=== PATIENT | male | born 1960 | race Caucasian/White ===

== ENCOUNTER 2025-02-07 14:05 | Emergency (ER) | payer MEDICARE, SELFPAY ==
[2025-02-07 14:06] VITALS: BMI 25.8
--- NOTE | 2025-02-07 14:47 | PC.NURSE ---
PATIENT WALK OUT OF ED LOBBY AT THIS TIME AND SECURITY STAFF REPORTED THAT PATIENT LEFT WALKING DOWN THE STREET.
--- NOTE | 2025-02-07 14:52 | PC.NURSE ---
PT CALLED FOR RME. NO RESPONSE X1 @1450.
== END 2025-02-07 15:00 | disposition left against medical advice (07) ==
LOC: SERX 15:46
PROVIDERS: Emergency Provider Emergency Medicine
DX: Z53.21 Procedure and treatment not carried out due to patient leaving prior to being seen by health care provider (principal)
CPT/HCPCS: 99283

== ENCOUNTER 2025-03-18 12:59 | Emergency (ER) | payer MEDICARE, SELFPAY ==
[2025-03-18 13:01] VITALS: BMI 25.0
--- NOTE | 2025-03-18 13:05 | EKG_ITS ---
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: : 1960 Requested By: ED Temporary Provider Order Number: [id number] Reading MD: ED Temporary Provider Measurements Intervals [place] Rate: 71 P: 49 MN: 128 QRS: 59 QRSD: 110 T: 60 QT: 431 QTc: 469 Interpretive Statements SINUS RHYTHM WITH OCCASIONAL VENTRICULAR PREMATURE COMPLEXES POSSIBLE LEFT ATRIAL ENLARGEMENT [-0.1mV P-WAVE IN V1/V2] INFERIOR MYOCARDIAL INFARCTION , PROBABLY OLD [40+ ms Q WAVE AND/OR ST/T ABNORMALITY IN II/aVF] Compared to ECG 09/30/2022 02:28:00 Ventricular premature complex(es) now present Myocardial infarct finding now present /store/S0/[id number]/ecg/[id number].pdf
[2025-03-18 13:14] VITALS: BP 127/66; PULSE 65; RESP 20; TEMP 37; O2SAT 98
--- NOTE | 2025-03-18 13:22 | XR_ITS ---
Examination: CT brain head without contrast. 2-D sagittal coronal reconstructions Date and time of exam:March 18, 2025, 1642 hours INDICATIONS: Syncopal episode, patient fell today with injury to the head, head pain CTDI: vol (mGy):51.4. DLP: (mGycm):1067. Technique: Multiple CT axial sections of the brain have been obtained, 5 mm slice thickness. Contrast has not been administered. 2-D sagittal, coronal reconstructions have been obtained Low dose protocols were performed. One or more of the following dose reduction techniques were used; automated exposure control, adjustment of the mA and/or KV according to patient size, use of iterative reconstruction technique. Findings: No significant ventricular enlargement. Intra-axial or extra-axial hemorrhage density is not seen. No mass effect or midline shift Basal cisterns are not remarkable. Fourth ventricle is midline. Cranial vault intact. Impression: Negative for acute hemorrhage, mass effect or midline shift
--- NOTE | 2025-03-18 13:22 | XR_ITS ---
Examination: PA lateral chest 2 views TECHNIQUE: Upright PA lateral chest 2 views Date and time: March 18, 2025 1333 hours Comparison September 30, 2022 INDICATIONS: Chest pain beginning today. Lines: Stable blunting left lateral costophrenic angle Surgical clips overlying the left anterior chest No pneumonia or pulmonary edema Median sternotomy wires IMPRESSION: No interval pneumonia or pulmonary edema
--- NOTE | 2025-03-18 13:22 | XR_ITS ---
Examination: CT cervical spine without contrast 2-D sagittal reconstructions 2-D coronal reconstructions 3-D reconstructions. Exam date and time:March 18, 2025, 1642 hours INDICATIONS: Patient fell today with injury to the neck, neck pain CTDI:vol (mGy) 14.9 DLP: (mGycm) 353 Technique: Multiple 2 mm axial sections of the cervical spine have been obtained. The coronal and sagittal reconstructions have been obtained. 3-D reconstructions have been obtained. Low dose protocols were performed. One or more of the following dose reduction techniques were used; automated exposure control, adjustment of the mA and/or KV according to patient size, use of iterative reconstruction technique. Findings: Axial sections demonstrate intact base of the skull. C1 exhibit satisfactory relationship to the odontoid. No acute cervical vertebral body fracture seen. Alignment posterior spinous processes satisfactory. Significant disc narrowing C5-C6, anterolisthesis C6 on C5 3 mm Impression: No acute cervical fracture.
--- NOTE | 2025-03-18 13:23 | PD.EDRME ---
Rapid Medical Screening Exam RME Arrival date/time: 03/18/25 12:59 62-year-old male presents to the emergency department today for complaints of syncopal episode today Chief Complaint: Syncope / Near Syncope Vital signs: Vital Signs Temperature 98.6 F 03/18/25 13:14 Pulse Rate 65 03/18/25 13:14 Respiratory Rate 20 03/18/25 13:14 Blood Pressure 127/66 03/18/25 13:14 Pulse Oximetry (%) 98 03/18/25 13:14 Oxygen Delivery Method Room Air 03/18/25 13:14
[2025-03-18 14:12] LABS: Basophils # (Auto) 0.0 Thou/mm3 (0.0-0.2); Basophils % (Auto) 1 % (0-2.5); Eosinophils # (Auto) 0.0 Thou/mm3 (0.0-0.5); Eosinophils % (Auto) 0 % (0-10); Hematocrit 41.6 % (41.0-53.0); Hemoglobin 14.9 g/dL (13.5-16.0); Immature Granulocytes Auto 0.01 Thou/mm3 (0.00-0.00); Lymphocytes # (Auto) 0.6 Thou/mm3 (1.0-4.8); Lymphocytes % (Auto) 22 % (10-50); Mean Corpuscular HGB Conc 35.8 g/dl (31.0-37.0); Mean Corpuscular Hemoglobin 32.3 pg (25.0-35.0); Mean Corpuscular Volume 90 fL (80-100); Monocytes # (Auto) 0.4 Thou/mm3 (0.0-0.8); Monocytes % (Auto) 17 % (0-12); Neutrophils # (Auto) 1.5 Thou/mm3 (1.8-7.7); Neutrophils % (Auto) 59 % (37-80); Nucleated Red Blood Cell # 0.00 Thou/mm3 (0.00-0.00); Nucleated Red Blood Cell % 0 /100 WBC (0); Platelet Count 105 Thou/mm3 (140-440); RDW Standard Deviation 43.8 fL (35.1-43.9); Red Blood Count 4.61 Miln/mm3 (4.50-5.90); White Blood Count 2.5 Thou/mm3 (3.8-10.6)
[2025-03-18 14:22] LABS: INR 1.1 (0.9-1.3); Partial Thromboplastin Time 32.0 Seconds (22.0-36.0); Prothrombin Time 11.8 Seconds (9.0-12.2)
[2025-03-18 14:27] LABS: B-Type Natriuretic Peptide 329 pg/mL (0-100)
[2025-03-18 14:29] LABS: Alanine Aminotransferase 20 U/L (10-49); Albumin, Serum 4.3 gm/dL (3.4-4.8); Albumin/Globulin Ratio 1.7 (1.2-2.2); Alkaline Phosphatase 68 U/L (46-116); Anion Gap 13 (7-16); Aspartate Amino Transferase 35 U/L (0-34); BUN/Creatinine Ratio 12 Ratio (12-20); Bilirubin,Total 0.5 mg/dL (0.3-1.2); Blood Urea Nitrogen 14 mg/dL (9-23); Calcium 9.6 mg/dL (8.3-10.6); Calcium (Corrected) 9.6 mg/dL (8.5-10.1); Carbon Dioxide 23.4 mMol/L (20.0-31.0); Chloride 101 mMol/L (98-107); Creatinine (Component) 1.2 mg/dL (0.6-1.3); Estimated Creatinine Clearance 59.7 mL/min (>60); Globulin 2.5 gm/dL (2.3-3.5); Glucose 106 mg/dL (74-106); Magnesium 1.6 mg/dL (1.6-2.6); Osmolality,Calculated 274 (275-295); Potassium 2.8 mMol/L (3.4-5.1); Sodium 137 mMol/L (136-145); Total Protein 6.8 gm/dL (5.7-8.2); Troponin I 0.026 ng/mL (0.0-0.045); eGFR > 60 See Note
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
== END 2025-03-18 18:16 | disposition left against medical advice (07) ==
PROVIDERS: Nurse Practitioner Primary Care; Emergency Provider Emergency Medicine; PCP Family Medicine
DX: I49.9 Cardiac arrhythmia, unspecified (principal); E87.6 Hypokalemia; D72.819 Decreased white blood cell count, unspecified; F31.9 Bipolar disorder, unspecified; E03.9 Hypothyroidism, unspecified; I10 Essential (primary) hypertension; Z53.29 Procedure and treatment not carried out because of patient's decision for other reasons; Z87.891 Personal history of nicotine dependence; Z95.1 Presence of aortocoronary bypass graft; Z79.890 Hormone replacement therapy
CPT/HCPCS: 36415; 70450; 71046; 72125; 80053; 80307; 81001; 83735; 83880; 84484; 85025; 85610; 85730; 93005; 99283; A9270

== ENCOUNTER 2025-03-23 20:52 | Emergency (ER) | payer MEDICARE, SELFPAY ==
--- NOTE | 2025-03-23 21:03 | PD.EDDIZZY ---
ED Dizzyness RME/HPI General Chief Complaint: General Adult/Misc Complain Stated Complaint: LIGHT HEADED Time Seen by Provider: 03/23/25 21:08 Arrival date/time: 03/23/25 20:52 RME / HPI RME / HPI Narrative: Dr. Vergara?s Main ED Evaluation: 64yo male brought in by EMS after acknowledging smoking medical marijuana and subsequently became diaphoretic and had a near syncopal episode, causing him to assume a seated position and call EMS. Patient spontaneously improved COMPUTER APPLICATIONS ENGINEER. No vomiting, diarrhea, or any other anteceding illness. PMH includes CAD and bypass surgery. Patient does engage in tobacco use. Denies alcohol use. Related Data Previous Rx's ?Medication ?Instructions ?Recorded furosemide 40 mg tablet (Lasix) 40 mg PO QDAY #10 tabs 09/30/22 potassium chloride 10 mEq 10 meq PO QDAY #10 caps 09/30/22 capsule,extended release Allergies Allergy/AdvReac Type Severity Reaction Status Date / Time No Known Allergies Allergy Verified 03/23/25 21:15 Review of Systems Review of Systems Systems Reviewed: All systems reviewed, normal except as documented Past Medical History Past Medical History CARDIAC: Positive Cardiac Disorders and Hypertension; Negative Congestive Heart Failure RESPIRATORY: Negative Chronic Obstructive Pulmonary Disease (COPD) GENITOURINARY: Negative Renal Disease ENDOCRINE: Positive Hypothyroidism; Negative Diabetes Mellitus Type 1 or Diabetes Mellitus Type 2 PSYCHO/SOCIAL: Positive Depression Surgical History SURGICAL: Positive Cardiac Surgery and Open Heart Surgery Social History SMOKING STATUS: Current some day smoker SUBSTANCE USE: does not use ED Exam Narrative Physical exam: GENERAL APPEARANCE: alert and oriented x 4, well-developed, well-nourished, nontoxix, resting comfortably and appropriately interactive, no acute distress VITALS: All vitals were reviewed and the pulse ox is 97% on room air, which is normal according to my interpretation. HEENT: Normocephalic, atraumatic; pupils equal, round, reactive to light; EOMI; mucous membranes pink, moist; oropharynx clear NECK: Supple LUNGS: CTABL; no wheezes, no rales, no rhonchi HEART: Regular rate, regular rhythm; normal S1, S2; no murmurs ABDOMEN: non distended; normal BS; soft, no tenderness, no guarding, no rebound; no masses, no organomegaly, no hernia BACK: no CVA tenderness EXTREMITIES: atraumatic; no edema NEUROLOGIC: awake; alert and oriented x4; cranial nerves II-XII grossly intact; no focal sensory or motor deficits PSYCHIATRIC: appropriate mood and affect SKIN: warm, dry, normal color; no rashes Course Quality Measures none Vital Signs Vital signs: Vital Signs Temperature 98.3 F 03/23/25 21:30 Pulse Rate 55 L 03/23/25 21:30 Respiratory Rate 15 03/23/25 21:30 Blood Pressure 110/77 03/23/25 21:30 Pulse Oximetry (%) 97 03/23/25 21:30 Oxygen Delivery Method Room Air 03/23/25 21:30 Dizziness MDM Narrative MDM Narrative:: Scribe Attestation: 03/23/25 - Shirlene Sandoval am scribing for and in the presence of Dr. Vergara. 64yo male brought in by EMS after acknowledging smoking medical marijuana and subsequently became diaphoretic and had a near syncopal episode, causing him to assume a seated position and call EMS. Patient spontaneously improved COMPUTER APPLICATIONS ENGINEER. Please see PE findings. Shortly after arrival and after initial medical screening exam, patient abruptly eloped. Patient was hemodynamically stable, neurologically intact, and of sound mind. Dx: near syncope, substance abuse Patient data External records reviewed:: [facility] previous records (Per chart review, patient was seen here on 03/18/25 for acute hypokalemia.) and EMS form Clinical information provided by:: patient Social determinants that could affect healthcare access:: substance use Patient has the following chronic illnesses:: HTN, hypothyroidism How is presenting disease/condition affected by chronic disease/condition?: uneffected by Evaluation data The following diagnostics were reviewed and interpreted by me:: other (specify) (none) Lab and/or radiology exams considered but not ordered:: none Interpretation Summary: none Medications / Prescriptions Medications or Prescriptions considered but not ordered:: none Medication administrations:: none Consultations Consultation(s) initiated? (list below): No Diagnosis Dizziness Differential Diagnosis: orthostatic hypotension and other (marijuana use, near syncope, dehydration) Most likely diagnosis given after review of the tests above:: Elopement Admission Indicated Admission indicated?: not indicated Admission Request Was there a request for admission?: No Disposition Plan Disposition Plan: other (specify) (Elopement) Discharge Plan Plan Patient Disposition: Elopement Prescriptions/Referrals Prescriptions/Med Rec: No Action furosemide [Lasix] 40 mg tablet 40 mg PO QDAY Qty: 10 0RF potassium chloride 10 mEq capsule, extended release 10 meq PO QDAY Qty: 10 0RF Referrals: No Primary/Family,Physician [Primary Care Provider] - In 1 week Problem List Clinical Impression: Near syncope, Substance abuse Patient/Caregiver Discharge Instructions Print Language: Citizen [place]
[2025-03-23 21:16] VITALS: PULSE 64; RESP 18; O2SAT 96
[2025-03-23 21:30] VITALS: BP 110/77; PULSE 55; RESP 15; TEMP 36.8; O2SAT 97; BMI 25.0
--- NOTE | 2025-03-23 22:17 | PC.NURSE ---
PT ELOPED THE ER PER SECURITY.
== END 2025-03-23 22:17 | disposition left against medical advice (07) ==
PROVIDERS: Emergency Provider Emergency Medicine
DX: R55 Syncope and collapse (principal); F12.10 Cannabis abuse, uncomplicated; I10 Essential (primary) hypertension; E03.9 Hypothyroidism, unspecified; I25.10 Atherosclerotic heart disease of native coronary artery without angina pectoris; Z53.29 Procedure and treatment not carried out because of patient's decision for other reasons; Z95.1 Presence of aortocoronary bypass graft; F17.200 Nicotine dependence, unspecified, uncomplicated
CPT/HCPCS: 99281

== ENCOUNTER 2025-06-03 10:10 | Emergency (ER) | payer MEDICARE, SELFPAY ==
[2025-06-03 10:11] VITALS: BMI 22.8
[2025-06-03 10:38] VITALS: BP 186/90; PULSE 97; RESP 19; TEMP 36.6; O2SAT 100
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
[2025-06-03] MEDS: HYDROcodone/APAP 5/325 TABLET 1 TAB PO (10:53)
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
== END 2025-06-03 15:03 | disposition home or self-care (01) ==
PROVIDERS: Emergency Provider Nurse Practitioner Primary Care; PCP Family Medicine
DX: S00.83XA Contusion of other part of head, initial encounter (principal); Y09 Assault by unspecified means; S00.419A Abrasion of unspecified ear, initial encounter; S00.03XA Contusion of scalp, initial encounter
CPT/HCPCS: 70450; 71250; 72125; 74176; 99282; A9270

== ENCOUNTER → 2025-07-05 | Outpatient (CLI) | payer MEDICARE, SELFPAY ==
[2025-07-05 12:23] LABS: Basophils # (Auto) 0.0 Thou/mm3 (0.0-0.2); Basophils % (Auto) 1 % (0-2.5); Eosinophils # (Auto) 0.1 Thou/mm3 (0.0-0.5); Eosinophils % (Auto) 2 % (0-10); Hematocrit 41.3 % (41.0-53.0); Hemoglobin 14.0 g/dL (13.5-16.0); Immature Granulocytes Auto 0.01 Thou/mm3 (0.00-0.00); Lymphocytes # (Auto) 1.5 Thou/mm3 (1.0-4.8); Lymphocytes % (Auto) 24 % (10-50); Mean Corpuscular HGB Conc 33.9 g/dl (31.0-37.0); Mean Corpuscular Hemoglobin 32.9 pg (25.0-35.0); Mean Corpuscular Volume 97 fL (80-100); Monocytes # (Auto) 0.6 Thou/mm3 (0.0-0.8); Monocytes % (Auto) 9 % (0-12); Neutrophils # (Auto) 4.0 Thou/mm3 (1.8-7.7); Neutrophils % (Auto) 65 % (37-80); Nucleated Red Blood Cell # 0.00 Thou/mm3 (0.00-0.00); Nucleated Red Blood Cell % 0 /100 WBC (0); Platelet Count 133 Thou/mm3 (140-440); RDW Standard Deviation 49.1 fL (35.1-43.9); Red Blood Count 4.26 Miln/mm3 (4.50-5.90); White Blood Count 6.1 Thou/mm3 (3.8-10.6)
[2025-07-05 13:00] LABS: Alanine Aminotransferase 8 U/L (10-49); Albumin, Serum 4.3 gm/dL (3.4-4.8); Albumin/Globulin Ratio 1.5 (1.2-2.2); Alkaline Phosphatase 72 U/L (46-116); Anion Gap 5 (7-16); Aspartate Amino Transferase 17 U/L (0-34); BUN/Creatinine Ratio 15 Ratio (12-20); Bilirubin,Total 0.7 mg/dL (0.3-1.2); Blood Urea Nitrogen 12 mg/dL (9-23); Calcium 8.9 mg/dL (8.3-10.6); Calcium (Corrected) 8.9 mg/dL (8.5-10.1); Carbon Dioxide 29.4 mMol/L (20.0-31.0); Cardiac Risk Estimate 2.2 RATIO (4.0-6.7); Chloride 108 mMol/L (98-107); Cholesterol 134 mg/dL (132-200); Creatinine (Component) 0.8 mg/dL (0.6-1.3); Globulin 2.8 gm/dL (2.3-3.5); Glucose 89 mg/dL (74-106); HDL Cholesterol 61 mg/dL (40-60); LDL Cholesterol,Calculated 62 mg/dL (0-130); Osmolality,Calculated 281 (275-295); Potassium 4.4 mMol/L (3.4-5.1); Sodium 142 mMol/L (136-145); Thyroid Stimulating Hormone 0.84 uIU/mL (0.55-4.78); Total Protein 7.1 gm/dL (5.7-8.2); Triglycerides 53 mg/dL (30-150); eGFR > 60 See Note
== END | disposition home or self-care (01) ==
LOC: COPL 11:35
PROVIDERS: PCP Family Medicine; Referring Provider Family Medicine; Visit Provider Family Medicine
DX: Z00.00 Encounter for general adult medical examination without abnormal findings (principal); E03.9 Hypothyroidism, unspecified; E78.2 Mixed hyperlipidemia; B18.2 Chronic viral hepatitis C; I25.10 Atherosclerotic heart disease of native coronary artery without angina pectoris
CPT/HCPCS: 36415; 80053; 80061; 81001; 84443; 85025